=== PATIENT | male | born 1965 | race Caucasian/White ===

== ENCOUNTER 2016-10-26 15:50 | Emergency (ER) | payer OTHER ==
[~2016-10-26] VITALS: Ht 175.3 cm; Wt 73.0 kg
[~2016-10-26 15:50] MED LIST: BLOOD PRESSURE PILL; DEPAKOTE500 MG PO; MUSCLE RELAXER; TEGRETOL-XR,CA400 MG PO
[2016-10-26 16:18] LABS: HEMATOCRIT 42.8 % (38.0-50.0); MCH 30.2 PG (29.0-34.0); MCHC 33.2 G/DL (30.0-36.0); MCV 91.1 FL (86-99); MEAN PLAT.VOLUME 9.6 uM^3 (9.0-12.4); PLATELET COUNT 178 K/uL (156-360); RBC DIS.WIDTH-CV 14.5 % (11.8-14.6); RBC DIS.WIDTH-SD 49.1 % (39-53); WHITE BLOOD COUNT 6.6 K/uL (4.1-10.2)
[2016-10-26 16:34] LABS: CHLORIDE 110 mEq/L (99-109); POTASSIUM 4.6 mEq/L (3.7-5.4); SODIUM 142 mEq/L (136-147)
[2016-10-26 16:35] LABS: GLUCOSE 95 mg/dL (70-99)
[2016-10-26 16:37] LABS: ANION GAP 10 MEQ/L (2-14)
[2016-10-26 16:39] LABS: GFR ESTIMATE (CALCULATED) > 59 mL/min/
[2016-10-26 16:40] LABS: UREA NITROGEN (BUN) 19 mg/dL (9-23)
[2016-10-26 16:42] LABS: TROP-I INTERPRETATION NEGATIVE; TROPONIN-I < 0.01 ng/mL (0.0-0.30)
[2016-10-26 18:40] LABS: TROP-I INTERPRETATION NEGATIVE; TROPONIN-I < 0.01 ng/mL (0.0-0.30)
[2016-10-26] MEDS ORDERED: KLONOPIN0.5 M1 PO (18:55)
[2016-10-26 19:04] VITALS: BP 140/94
== END 2016-10-26 19:06 | disposition home or self-care (01) ==
LOC: EME 15:50
PROVIDERS: Emergency Medicine
DX: F41.9 Anxiety disorder, unspecified (principal); R07.89 Other chest pain; F32.9 Major depressive disorder, single episode, unspecified; F12.10 Cannabis abuse, uncomplicated; F10.20 Alcohol dependence, uncomplicated; Z91.5 Personal history of self-harm; F17.200 Nicotine dependence, unspecified, uncomplicated
CPT/HCPCS: 80048; 84484; 85027; 90839; 93005; 99281; 99283; G0480